=== PATIENT | female | born 1970 | race Caucasian/White ===

== ENCOUNTER → 2021-11-28 | Outpatient (CLI) | payer BC | LOC: M RAD 10:58 | PROVIDERS: ATTEND Otolaryngology | DX: J32.0 Chronic maxillary sinusitis (principal); J34.2 Deviated nasal septum; Z98.890 Other specified postprocedural states ==

== ENCOUNTER 2023-02-18 06:22 | Day surgery (SDC) | payer BC ==
[~2023-02-18] VITALS: Ht 165.1 cm; Wt 71.6 kg
[~2023-02-18 06:22] MED LIST: ALBU8.5H INH; ATOR1TAB19 PO; B-12100010 PO; BENA25CA4 PO; CITRTAB18 PO; CLAR500T97 PO; CLON1TAB8 PO; CYCLOPENTOLATE 1% OPHTH SOLN 2ML BTL OD SCH; FAMO40TA3 PO; FARX1TAB3 PO; FLUTISP NARES; HYDR-4468 PO; INSUH10VL SC; LANTINJ4 SC; LEXA1TAB PO; MUCI60TA7 PO; NYST-13 TOP; OFLOXACIN 0.3 % (OCUFLOX) OPTH SOL 5ML OD SCH; OXYC7.5T3 PO; PHENYLEPHRINE 2.5% OPHTH SOL 2ML OD SCH; PRED10PA2 PO; PROPARACAINE 0.5% OPHTH SOL 15ML OD ONE; QUET100T2 PO; QUET50TA4 PO; SEMA1PEN2 PO; SIME180C25 PO; SUMA50TA2 PO; TOPI25TA10 PO; TROPICAMIDE 1% OPHTH SOLN 15ML OD SCH; VITA100093 PO; VITMTA PO
[2023-02-18] MEDS ORDERED: LIDOCAINE 1% SDV 5ML VIAL As Ordered ONE (06:35)
[2023-02-18] MEDS ORDERED: BSS IRR 500ML/OMIDRIA 4ML IRR BAG (OR ONLY) As Ordered ONE (06:35)
[2023-02-18] MEDS ORDERED: CEFUROXIME 1MG/0.1ML INTRACAMERAL INJ As Ordered ONE (06:36)
[2023-02-18] MEDS ORDERED: fentaNYL 100 MCG/2 ML INJECTION As Ordered ONE (07:19)
[2023-02-18] MEDS ORDERED: MIDAZOLAM INJ 2MG/2ML VIAL As Ordered ONE (07:19)
[2023-02-18 08:15] VITALS: BP 106/69; TEMP 97.2; O2SAT 98
== END 2023-02-18 08:32 | disposition home or self-care (01) ==
LOC: M SDC 06:22
PROVIDERS: ATTEND Ophthalmology
DX: H25.11 Age-related nuclear cataract, right eye (principal); E78.5 Hyperlipidemia, unspecified; E11.9 Type 2 diabetes mellitus without complications; K76.9 Liver disease, unspecified; E27.40 Unspecified adrenocortical insufficiency; G43.909 Migraine, unspecified, not intractable, without status migrainosus; Z87.891 Personal history of nicotine dependence; F31.9 Bipolar disorder, unspecified; F41.9 Anxiety disorder, unspecified; J45.909 Unspecified asthma, uncomplicated; F03.90 Unspecified dementia, unspecified severity, without behavioral disturbance, psychotic disturbance, mood disturbance, and anxiety; Z79.51 Long term (current) use of inhaled steroids; Z79.4 Long term (current) use of insulin; Z79.899 Other long term (current) drug therapy; Z88.2 Allergy status to sulfonamides; Z88.1 Allergy status to other antibiotic agents; Z88.0 Allergy status to penicillin; Z88.8 Allergy status to other drugs, medicaments and biological substances
CPT/HCPCS: 66984; J0697; J1097; J2250; J3010; V2632

== ENCOUNTER 2023-03-18 06:46 | Day surgery (SDC) | payer BC ==
[~2023-03-18] VITALS: Ht 165.1 cm; Wt 69.6 kg
[~2023-03-18 06:46] MED LIST changes: +BSS IRR 500ML/OMIDRIA 4ML IRR BAG (OR ONLY) As Ordered ONE; +CEFUROXIME 1MG/0.1ML INTRACAMERAL INJ As Ordered ONE; -CYCLOPENTOLATE 1% OPHTH SOLN 2ML BTL OD SCH; +CYCLOPENTOLATE 1% OPHTH SOLN 2ML BTL OS SCH; +LIDOCAINE 1% SDV 5ML VIAL As Ordered ONE; -OFLOXACIN 0.3 % (OCUFLOX) OPTH SOL 5ML OD SCH; +OFLOXACIN 0.3 % (OCUFLOX) OPTH SOL 5ML OS SCH; -PHENYLEPHRINE 2.5% OPHTH SOL 2ML OD SCH; +PHENYLEPHRINE 2.5% OPHTH SOL 2ML OS SCH; -PROPARACAINE 0.5% OPHTH SOL 15ML OD ONE; +PROPARACAINE 0.5% OPHTH SOL 15ML OS ONE; -TROPICAMIDE 1% OPHTH SOLN 15ML OD SCH; +TROPICAMIDE 1% OPHTH SOLN 15ML OS SCH
[2023-03-18] MEDS ORDERED: fentaNYL 100 MCG/2 ML INJECTION As Ordered ONE ×2 (08:40→08:45)
[2023-03-18] MEDS ORDERED: MIDAZOLAM INJ 2MG/2ML VIAL As Ordered ONE (08:40)
[2023-03-18 08:54] VITALS: BP 108/64; TEMP 96.4; O2SAT 96
== END 2023-03-18 09:13 | disposition home or self-care (01) ==
LOC: M SDC 06:46
PROVIDERS: ATTEND Ophthalmology
DX: E11.36 Type 2 diabetes mellitus with diabetic cataract (principal); H25.12 Age-related nuclear cataract, left eye; J45.909 Unspecified asthma, uncomplicated; E78.00 Pure hypercholesterolemia, unspecified; E27.40 Unspecified adrenocortical insufficiency; K76.0 Fatty (change of) liver, not elsewhere classified; Z79.899 Other long term (current) drug therapy; Z88.8 Allergy status to other drugs, medicaments and biological substances; K21.9 Gastro-esophageal reflux disease without esophagitis; Z88.2 Allergy status to sulfonamides; Z79.4 Long term (current) use of insulin
CPT/HCPCS: 66984; J0697; J1097; J2250; J3010; V2632